=== PATIENT | female | born 1970 ===

== ENCOUNTER 2017-08-01 10:57 | Emergency (ER) | payer BC ==
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
[2017-08-01] MEDS ORDERED: Oxycodone/Acetaminophen 5/325 mg Tab PO STA (12:10)
[2017-08-01] MEDS ORDERED: Oxycodone/Acetaminophen 5/325 mg Tab ONE (12:20)
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
[2017-08-01 14:51] VITALS: BP 132/81; PULSE 77; RESP 16; TEMP 98; O2SAT 98
== END 2017-08-01 14:20 | disposition home or self-care (01) ==
LOC: H.ER 10:57
DX: S20.219A Contusion of unspecified front wall of thorax, initial encounter (principal); Y04.0XXA Assault by unarmed brawl or fight, initial encounter; Y92.89 Other specified places as the place of occurrence of the external cause; F41.9 Anxiety disorder, unspecified

== ENCOUNTER 2017-08-02 11:12 | Inpatient (IN) | payer BC ==
--- NOTE | 2017-08-02 12:12 | ED PDOC ---
HPI: Psych/Substance Abuse Time Seen by Provider: 08/02/17 12:11 Chief Complaint (Nursing): Psychiatric Evaluation Chief Complaint (Provider): psych eval History Per: Patient (47 y/o female here for evaluation of depression/si. States she had composed plan for intake of her buspar medications today. Denies any alcohol intake.) Past Medical History Reviewed: Historical Data, Nursing Documentation, Vital Signs Vital Signs: Last Vital Signs Temp 98.5 F 08/02/17 11:16 Pulse 82 08/02/17 11:16 Resp 20 08/02/17 11:16 BP 123/57 L 08/02/17 11:16 Pulse Ox 100 08/02/17 11:16 - Medical History PMH: Bipolar Disorder - Family History Family History: States: Unknown Family Hx - Home Medications Home Medications: Ambulatory Orders Medication Instructions Recorded oxyCODONE/Acetaminophen [Percocet 1 ea PO Q6H PRN #5 tab 08/01/17 5/325 mg Tab] ALPRAZolam [Xanax] 1 mg PO Q8 PRN 08/02/17 Topiramate [Topamax] 25 mg PO HS 08/02/17 busPIRone [Buspar] 10 mg PO Q12 08/02/17 hydrOXYzine Pamoate [Vistaril] 50 mg PO Q6 PRN 08/02/17 - Allergies Allergies/Adverse Reactions: Allergies Allergy/AdvReac Type Severity Reaction Status Date / Time nut - unspecified Allergy RASH Verified 08/02/17 11:24 shellfish derived Allergy ANAPHYLAXIS Verified 08/02/17 11:24 Review of Systems ROS Statement: Except As Marked, All Systems Reviewed And Found Negative Physical Exam - Reviewed Nursing Documentation Reviewed: Yes Vital Signs Reviewed: Yes - Physical Exam Appears: Positive for: Well, Non-toxic, No Acute Distress Head Exam: Positive for: ATRAUMATIC, NORMAL INSPECTION, NORMOCEPHALIC Skin: Positive for: Normal Color, Warm, DRY Eye Exam: Positive for: EOMI, Normal appearance, PERRL ENT: Positive for: Normal ENT Inspection Neck: Positive for: Normal, Painless ROM Cardiovascular/Chest: Positive for: Regular Rate, Rhythm Respiratory: Positive for: CNT, Normal Breath Sounds Gastrointestinal/Abdominal: Positive for: Normal Exam, Soft Back: Positive for: Normal Inspection Extremity: Positive for: Normal ROM Neurologic/Psych: Positive for: Alert, Oriented - Laboratory Results Result Diagrams: 08/02/17 12:40 08/02/17 12:40 - ECG O2 Sat by Pulse Oximetry: 100 - Progress ED Course And Treament: d/w crisis admitted to [facility] Diagnosis depression/anxiety Disposition - Clinical Impression Clinical Impression: Depression, Anxiety - Patient ED Disposition Is Patient to be Admitted: Yes - Disposition Disposition Time: 13:59 Condition: FAIR - Pt Status Changed To: Hospital Disposition Of: Inpatient - Admit Certification Admit to Inpatient:: After my assessment, the patient will require hospitalization for at least two midnights. This is because of the severity of symptoms shown, intensity of services needed, and/or the medical risk in this patient being treated as an outpatient.
[2017-08-02 12:44] LABS: BASO # 0.1 K/uL (0.0-0.2); BASO % 1.9 % (0.0-2.0); EOS # 0.5 K/uL (0.0-0.7); EOS % 6.8 % (0.0-4.0); HEMOGLOBIN 12.1 g/dL (12.0-16.0); LYMPH # 1.6 K/uL (1.0-4.3); LYMPH % 22.8 % (20.0-40.0); MEAN CELL VOLUME 88.3 fl (81.0-99.0); MEAN CORPUSCULAR HEMOGLOBIN 29.4 pg (27.0-31.0); MEAN CORPUSCULAR HGB CONC 33.3 g/dL (33.0-37.0); MEAN PLATELET VOLUME 6.8 fl (7.2-11.7); MONO # 0.5 K/uL (0.0-0.8); MONO % 7.2 % (0.0-10.0); NEUT # 4.4 K/uL (1.8-7.0); NEUT % 61.3 % (50.0-75.0); RBC 4.11 Mil/uL (3.80-5.20); RED CELL DISTRIBUTION WIDTH 14.9 % (11.5-14.5); WHITE BLOOD COUNT 7.2 K/uL (4.8-10.8)
[2017-08-02 13:02] LABS: ALB/GLOB RATIO 1.2 (1.0-2.1); ALBUMIN 3.8 g/dL (3.5-5.0); ALT/SGPT 31 U/L (9-52); AST/SGOT 20 U/L (14-36); BLOOD UREA NITROGEN 10 mg/dl (7-17); GFR AFRICAN-AMERICAN > 60; GFR NON-AFRICAN AMERICAN > 60
[2017-08-02] MEDS ORDERED: Oxycodone/Acetaminophen 5/325 mg Tab PO STA (14:40)
[2017-08-02 14:45] LABS: SQUAMOUS EPITHIAL 5 /hpf (0-5); URINE BACTERIA FEW (<OCC); URINE BILIRUBIN NEGATIVE (NEGATIVE); URINE BLOOD NEGATIVE (NEGATIVE); URINE CLARITY CLOUDY (Clear); URINE COLOR YELLOW (YELLOW); URINE GLUCOSE (UA) NEG (Normal); URINE LEUKOCYTE ESTERASE MOD Leu/uL (Negative); URINE PROTEIN NEGATIVE (NEGATIVE); URINE UROBILINOGEN 0.2-1.0 mg/dL (0.2-1.0)
[2017-08-02 15:21] LABS: BARBITURATES, UR NEGATIVE (NEGATIVE); OPIATES, UR NEGATIVE (NEGATIVE)
[2017-08-02 15:29] LABS: BENZODIAZEPINES, UR POSITIVE (NEGATIVE); PHENCYCLIDINE, UR NEGATIVE (NEGATIVE)
[2017-08-02 16:39] VITALS: O2SAT 97
[2017-08-02] MEDS ORDERED: Alum-Mag Hydrox-Simethicone Susp (30 mL) PO PRN (17:38)
[2017-08-02] MEDS ORDERED: Bismuth Subsalicylate 262 mg/15 ml Sus (240 ml) PO PRN (17:38)
[2017-08-02] MEDS ORDERED: Magnesium Hydroxide Susp 30 ml UD PO PRN (17:38)
[2017-08-02 18:23] LABS: HDL CHOLESTEROL 42 MG/DL (30-70)
--- NOTE | 2017-08-02 18:26 | PCM.BM ---
<Alva Song - Last Filed: 08/02/17 18:28> Treatment Plan Problems - Problems identified on initial assessmt Problem 1 Date Initiated: 08/02/17 Time Initiated: 18:25 Assessment reference: NA Status: Active Priority: 1 Helplessness/hopeless Date Initiated: 08/02/17 Time Initiated: 18:27 Assessment reference: NA Status: Active Priority: 1 Treatment assets and liabiliti Patient Assests: cooperative, educated, motivated, ADL independent, good support system, negotiates basic needs, cognitively intact Patient Liabilities: financial problems, relationship conflicts, substance abuse - Milieu Protocol Maintain good personal hygiene: every shift Encourage regular showers, every shift Remind patient to perform daily oral care, every shift Assist patient to perform ADL's Maintain personal safety: every shift Educate patient to report safety concerns to staff, every shift Monitor environment for contraband/sharps Medication safety: Monitor for expected outcome, potential side effects: every shift, Assess barriers to learning: every shift, Assess readiness for medication education: every shift <Latosha Sim - Last Filed: 08/03/17 11:57> - Diagnosis (1) Bipolar II disorder Status: Acute Interventions: Medication management, Individual and group therapy, Psychoeducation 08/03/17 11:57 (2) Generalized anxiety disorder Status: Acute Interventions: Medication management, Individual and group therapy, Psychoeducation 08/03/17 11:57 (3) Cocaine use disorder Status: Acute Interventions: Motivational interviewing, Individual and group therapy, Psychoeducation 08/03/17 11:57 <Ambika Mead - Last Filed: 08/03/17 14:37> Family Contact Family contact: Patient agrees to contact, Family has been contacted by patient , Telephone contact initiated by staff Family contact name: Ivis - son Family contacted how many times per week?: 2 Family contact comment: [phone] - Outside Agency [facility] Program Care involvment: Information-sharing Agency contact name: Luis Carlos Agency contact number: [phone] - Goals for Treatment Patient goals for treatment: Pt to be encouraged to attend activity and clinical groups 3-5x per week to identify at least 2 contributing factors to depression and suicide attempt. Psycho-education to be provided to patient/ family regarding benefits of medications and treatment adherence. Pt to be encouraged to participate in group milieu to develop effective coping skills to reduce depression and free of suicide ideation. Coordinate discharge resource needs by providing referral for psychiatric treatment follow up in the community. Discharge/Continuing Care - Education Needs Education Needs: Family Medication, Family Diagnosis/Disease Process, Family Coping Skills, Family Community resources, Family Activities of Daily Living, Family Personal Hygiene/Grooming, Family Aftercare Safety Plan, Patient Medication, Patient Diagnosis/Disease Process, Patient Coping Skills, Patient Community resources, Patient Activities of Daily Living, Patient Personal Hygiene/Grooming, Patient Aftercare Safety Plan - Discharge Discharge Criteria: Tolerates medication w/o severe side effects, Normal sleep pattern, Ability to care for self, Reduction of target symptoms, Other (Free of depressive symptoms) Discharge to:: Home, With Family - Additional Comments 08/03/17 14:30 Pt seen and discussed in team meeting. Reason for admission reviewed. Pt reported being referred to the hospital because "I woke up and wasn't in my right state of mind." Pt reported feeling depressed and anxious. Pt reported hx of anxiety resulting in pt going on temporary disability. Pt reported tx with a previous psychiatrist by the name of Dr. Karen MD located on [place]; but cannot recall the exact address or clinic he worked out of. Pt reported that she was dx with Bipolar D/O by Dr. Karen MD. At time of assessment, pt denied active SI and HI. Pt denied AVH. Pt denied any paranoia. Pt reported feeling "better" since admission. Pt's social and medical issues reviewed. Pt's medications reviewed. Please refer to MD progress note for additional medication information. Pt provided insurance underwriter with written and verbal autho to call her son, Stephen ([phone]) for collateral information. Pt also provided insurance underwriter with verbal autho to contact Luis Carlos ROSENBERG at [facility] ) for additional information. Tx plan reviewed with pt and pt verbalized understanding of same. SW to continue to follow case. - Treatment Team Participation Discussed with Family/SO: No Was Patient/Family/SO present at Treatment Team Meeting: Yes
[2017-08-02 18:33] LABS: LDL CHOLESTEROL 81 mg/dL (0-129)
[2017-08-03 06:50] LABS: MEAN CELL VOLUME 87.8 fl (81.0-99.0); MEAN CORPUSCULAR HEMOGLOBIN 29.5 pg (27.0-31.0); MEAN CORPUSCULAR HGB CONC 33.6 g/dL (33.0-37.0); RBC 4.08 Mil/uL (3.80-5.20); RED CELL DISTRIBUTION WIDTH 14.9 % (11.5-14.5); WHITE BLOOD COUNT 6.8 K/uL (4.8-10.8)
[2017-08-03 07:23] LABS: LDL CHOLESTEROL 80 mg/dL (0-129)
[2017-08-03 07:32] LABS: T4 7.93 ug/dl (5.5-11.0)
[2017-08-03 07:49] LABS: ALB/GLOB RATIO 1.1 (1.0-2.1); ALBUMIN 3.5 g/dL (3.5-5.0); ALT/SGPT 24 U/L (9-52); AST/SGOT 24 U/L (14-36); BLOOD UREA NITROGEN 14 mg/dl (7-17); CALCIUM 8.8 mg/dL (8.4-10.2); FERRITIN 70.8 ng/Ml (6.24-137.0); GFR AFRICAN-AMERICAN > 60; GFR NON-AFRICAN AMERICAN > 60; HDL CHOLESTEROL 38 MG/DL (30-70)
[2017-08-03 08:49] LABS: SQUAMOUS EPITHIAL 7 /hpf (0-5); URINE BACTERIA RARE (<OCC); URINE BILIRUBIN NEGATIVE (NEGATIVE); URINE BLOOD NEGATIVE (NEGATIVE); URINE CLARITY SLIGHTY-CLOUDY (Clear); URINE COLOR YELLOW (YELLOW); URINE GLUCOSE (UA) NEG (Normal); URINE LEUKOCYTE ESTERASE LARGE Leu/uL (Negative); URINE PROTEIN NEGATIVE (NEGATIVE); URINE UROBILINOGEN 0.2-1.0 mg/dL (0.2-1.0)
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
[2017-08-03] MEDS ORDERED: Oxycodone/Acetaminophen 5/325 mg Tab PO PRN (12:03)
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
[2017-08-03 13:15] LABS: FOLATE 9.9 ng/mL
[2017-08-03] MEDS ORDERED: Pneumococcal 23-Valent Vaccine IM ONE (17:24)
[2017-08-04 05:38] VITALS: BP 102/61; PULSE 66; RESP 19; TEMP 97
[2017-08-04 06:53] LABS: BASO # 0.1 K/uL (0.0-0.2); BASO % 1.3 % (0.0-2.0); EOS # 0.5 K/uL (0.0-0.7); EOS % 5.9 % (0.0-4.0); HEMOGLOBIN 12.4 g/dL (12.0-16.0); LYMPH # 1.7 K/uL (1.0-4.3); LYMPH % 21.8 % (20.0-40.0); MEAN CELL VOLUME 88.2 fl (81.0-99.0); MEAN CORPUSCULAR HEMOGLOBIN 28.8 pg (27.0-31.0); MEAN CORPUSCULAR HGB CONC 32.6 g/dL (33.0-37.0); MEAN PLATELET VOLUME 6.9 fl (7.2-11.7); MONO # 0.6 K/uL (0.0-0.8); MONO % 8.1 % (0.0-10.0); NEUT % 62.9 % (50.0-75.0); RBC 4.32 Mil/uL (3.80-5.20); RED CELL DISTRIBUTION WIDTH 14.8 % (11.5-14.5)
--- NOTE | 2017-08-04 09:39 | PCM.PYCHPN ---
Psychiatric Progress Note - Psychiatric Progress Note Patient Chief Complaint: "I'm depressed and anxious." Mental Status Examination - Cognitive Function Orientation: Person, Place, Situation, Time - Mood Mood: Depressed, Anxious - Affect Affect: Constricted, Depressed - Formal Thought Process Formal Thought Process: No Impairment - Homicidal Ideation Homicidal Ideation: No Goal/Treatment Plan - Goal/Treatment Plan Progress Toward Problem(s) and Goals/Treatment Plan: Bipolar II Disorder, r/o Substance Induced Mood Disorder, r/o Borderline Personality Disorder; Generalized Anxiety Disorder; Cocaine Use Disorder -Admit to psychiatry unit -Stop Topamax, start Lamictal 25 mg PO Daily -Continue Buspar 10 mg PO BID -Stop Xanax; psychoeducation provided on the dangers of fpc benzodiazepine use/abuse; PRN Ativan if needed for withdrawal symptoms -Medicine consult -Individual and group therapy -Psychoeducation re: substance abuse -Disposition planning -Patient declined nicotine replacement
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
--- NOTE | 2017-08-04 15:30 | CP.PCM.PN ---
Subjective - Date & Time of Evaluation Date of Evaluation: 08/04/17 Objective - Vital Signs/Intake and Output Vital Signs (last 24 hours): Temp Pulse Resp BP Pulse Ox 97 F L 66 19 102/61 97 08/04/17 05:37 08/04/17 05:37 08/04/17 05:37 08/04/17 05:37 08/02/17 16:20 - Labs Labs: 08/04/17 06:35 08/03/17 06:20
== END 2017-08-04 13:24 | disposition home or self-care (01) | DRG 885 ==
LOC: H.ER 11:12 → H.PSYCH 13:59 → H.ERHOLD 14:32 → H.STEP 17:22
PROVIDERS: ADMIT Psychiatry & Neurology Psychiatry; ATTEND Psychiatry & Neurology Psychiatry
PROC: HZ56ZZZ Individual Psychotherapy for Substance Abuse Treatment, Psychoeducation (ICD-10-PCS; principal; 2017-08-02)
PROC: 3E0234Z Introduction of Serum, Toxoid and Vaccine into Muscle, Percutaneous Approach (ICD-10-PCS; 2017-08-03)
DX: F31.81 Bipolar II disorder (principal); N39.0 Urinary tract infection, site not specified; F41.1 Generalized anxiety disorder; F14.90 Cocaine use, unspecified, uncomplicated; Z91.013 Allergy to seafood; Z91.018 Allergy to other foods; Z23 Encounter for immunization; F17.210 Nicotine dependence, cigarettes, uncomplicated

== ENCOUNTER 2018-04-24 13:18 | Emergency (ER) | payer BC, OTHER ==
[2018-04-24 13:25] VITALS: BP 102/65; PULSE 57; RESP 18; TEMP 97.6; O2SAT 100
--- NOTE | 2018-04-24 16:24 | ED PDOC ---
HPI: Back Time Seen by Provider: 04/24/18 13:35 Chief Complaint (Nursing): Back Pain Chief Complaint (Provider): Back Pain History Per: Patient History/Exam Limitations: no limitations Onset/Duration Of Symptoms: Days Current Symptoms Are (Timing): Still Present Additional Complaint(s): 48 y/o female with a PMHx of Bipolar Disorder and herniated disks presents to the ED for evaluation of back pain with radiation down the back of the right leg as well as bilateral ear clogging. Patient states she started feeling like her left ear was clogged about a month ago and has now progressed to the right ear. Patient notes she has not taken any medications for pain nor seen any specialists. Patient states that the main reason she is here today is for evaluation of back pain that began one week ago. Patient reports pain as now progressed by going down the right leg. Patient notes of taking 800 mg of Ibuprofen and intermittent flexeril without much improvement of pain. Otherwise, patient denies numbness and tingling in the feet, trauma, falls, fever, chills, dizziness and sore throat. PMD:Jagdeep Rodas Past Medical History Reviewed: Historical Data, Nursing Documentation, Vital Signs Vital Signs: Last Vital Signs Temp 97.6 F 04/24/18 13:24 Pulse 57 L 04/24/18 13:24 Resp 18 04/24/18 13:24 BP 102/65 04/24/18 13:24 Pulse Ox 100 04/24/18 13:24 - Medical History PMH: Anxiety, Bipolar Disorder, Depression Denies: Diabetes, Hepatitis, HIV, HTN, Chronic Kidney Disease, Seizures, Sexually Transmitted Disease Other PMH: herniated disks - Surgical History Surgical History: No Surg Hx - Family History Family History: States: Unknown Family Hx - Home Medications Home Medications: Ambulatory Orders Medication Instructions Recorded Nitrofurantoin Macrocrystals 100 mg PO Q12 #11 cap 08/04/17 [Macrobid] busPIRone [Buspar] 10 mg PO BID #28 tab 08/04/17 lamoTRIgine [Lamictal] 25 mg PO DAILY #14 tab 08/04/17 Cyclobenzaprine [Cyclobenzaprine 10 mg PO Q8 PRN 5 Days tab 04/24/18 HCl] Diclofenac Sodium 50 mg PO TID PRN 7 Days tablet. 04/24/18 Fluticasone Nasal [Flonase] 1 spr NS BID PRN #1 bottle 04/24/18 Methylprednisolone [Medrol Dose 4 mg PO DAILY #21 mg 04/24/18 Pack (21 tabs)] - Allergies Allergies/Adverse Reactions: Allergies Allergy/AdvReac Type Severity Reaction Status Date / Time nut - unspecified Allergy RASH Verified 08/02/17 11:24 shellfish derived Allergy ANAPHYLAXIS Verified 08/02/17 11:24 Review of Systems ROS Statement: Except As Marked, All Systems Reviewed And Found Negative Constitutional: Negative for: Fever, Chills ENT: Positive for: Ear Pain. Negative for: Throat Pain Musculoskeletal: Positive for: Back Pain, Leg Pain Neurological: Negative for: Numbness, Dizziness Physical Exam - Reviewed Nursing Documentation Reviewed: Yes Vital Signs Reviewed: Yes - Physical Exam Appears: Positive for: Well ENT: Positive for: Pharynx Is (clear), TM Is/Are (TMs normal bilaterally), Sinus Pain/Drainage (Tenderness to palpation on the frontal sinuses), Nasal Congestion, Other (swollen nasal turbinates (right>left)) Pulses-Dorsalis Pedis (L): 2+ Pulses-Dorsalis Pedis (R): 2+ Back: Positive for: Decreased ROM (with flexion of the back), Other (Tenderness to palpation of the lumbar spine and the right buttock to the right leg. No erythema, deformity and ecchymosis. ) Extremity: Positive for: Normal ROM (Normal ROM with flexion and extension of the right knee and ankle. Pain with flexion of the right hip), Capillary Refill (> 2 seconds) - ECG O2 Sat by Pulse Oximetry: 100 (RA) Pulse Ox Interpretation: Normal Medical Decision Making Medical Decision Making: Time: 1541 Impression: -- Flexeril 10 mg PO -- Flonase 1 spr LAN -- Toradol 30 mg IM -- Patient advised that her ear clogging may be secondary to nasal congestion. Patient instructed that if symptoms do not improve with the use of Flonase, she will be given a referral to followup with an ENT specialist. Scribe Attestation: Documented by Alina Stevenson, acting as a scribe Danish Greco PA-C. Provider Scribe Attestation: All medical record entries made by the Scribe were at my direction and personally dictated by me. I have reviewed the chart and agree that the record accurately reflects my personal performance of the history, physical exam, medical decision making, and the department course for this patient. I have also personally directed, reviewed, and agree with the discharge instructions and disposition. Disposition - Clinical Impression Clinical Impression: Sciatica, Nasal congestion - Patient ED Disposition Is Patient to be Admitted: No - Disposition Referrals: Adan Li MD [Staff Provider] - Disposition: Routine/Home Disposition Time: 16:41 Condition: STABLE Additional Instructions: Take Diclofenac and Flexeril as needed for pain. Avoid driving or operating heavy machinery while taking Flexeril. Use Flonase for nasal congestion. Follow up with budget director (Ear, nose, throat specialist) if ear symptoms continue. Follow up with your primary care doctor for further evaluation of sciatica. Prescriptions: Cyclobenzaprine [Cyclobenzaprine HCl] 10 mg PO Q8 PRN 5 Days tab PRN Reason: Pain, Moderate (4-7) Diclofenac Sodium 50 mg PO TID PRN 7 Days tablet.dr PRN Reason: Pain, Moderate (4-7) Fluticasone Nasal [Flonase] 1 spr NS BID PRN #1 bottle PRN Reason: Nasal Congestion Methylprednisolone [Medrol Dose Pack (21 tabs)] 4 mg PO DAILY #21 mg Instructions: Sciatica (DC) Forms: [employer] (Irish) Print Language: MALAYSIAN
== END 2018-04-24 16:49 | disposition home or self-care (01) ==
LOC: H.ER 13:18
DX: M54.31 Sciatica, right side (principal); R09.81 Nasal congestion; F31.9 Bipolar disorder, unspecified
CPT/HCPCS: 96372; 99284; J1885

== ENCOUNTER 2018-07-11 14:21 | Emergency (ER) | payer BC, OTHER ==
[2018-07-11 14:43] VITALS: BP 123/78; PULSE 75; RESP 15; TEMP 99; O2SAT 99
--- NOTE | 2018-07-11 15:34 | ED PDOC ---
HPI: Back Time Seen by Provider: 07/11/18 14:47 Chief Complaint (Nursing): Lower Extremity Problem/Injury Chief Complaint (Provider): Back Pain History Per: Patient History/Exam Limitations: no limitations Onset/Duration Of Symptoms: Days (chronic), Worse Since (x1 week) Current Symptoms Are (Timing): Still Present Additional Complaint(s): 48 year old female with pmhx bipolar disorder, depression, and sciatica presents to the ED for evaluation recurrent sciatica pain. Patient reports that one month ago she received an injection for her chronic pain by her pain management doctor, but one week ago it wore off and has had worsening pain since that begins in her bilateral lower back and radiates down her buttocks into her bilateral legs. Otherwise, denies weakness, urinary / fecal incontinence, and numbness / tingling in extremities. Of note, she last took four tabs of 800mg each Ibuprofen last night around 1800 with minimal relief. Past Medical History Reviewed: Historical Data, Nursing Documentation, Vital Signs Vital Signs: Last Vital Signs Temp 99.0 F 07/11/18 14:42 Pulse 75 07/11/18 14:42 Resp 15 07/11/18 14:42 BP 123/78 07/11/18 14:42 Pulse Ox 99 07/11/18 14:42 Primary Care Provider: Jagdeep Rodas - Medical History PMH: Anxiety, Back Problems, Bipolar Disorder, Depression, Chronic Pain (sciatica) Denies: Diabetes, Hepatitis, HIV, HTN, Chronic Kidney Disease, Seizures, Sexually Transmitted Disease - Surgical History Surgical History: No Surg Hx - Family History Family History: States: Unknown Family Hx - Social History Current smoker - smoking cessation education provided: Yes - Home Medications Home Medications: Ambulatory Orders Medication Instructions Recorded Nitrofurantoin Macrocrystals 100 mg PO Q12 #11 cap 08/04/17 [Macrobid] busPIRone [Buspar] 10 mg PO BID #28 tab 08/04/17 lamoTRIgine [Lamictal] 25 mg PO DAILY #14 tab 08/04/17 Cyclobenzaprine [Cyclobenzaprine 10 mg PO Q8 PRN 5 Days tab 04/24/18 HCl] Diclofenac Sodium 50 mg PO TID PRN 7 Days tablet. 04/24/18 Fluticasone Nasal [Flonase] 1 spr NS BID PRN #1 bottle 04/24/18 Methylprednisolone [Medrol Dose 4 mg PO DAILY #21 mg 04/24/18 Pack (21 tabs)] Cyclobenzaprine [Flexeril] 10 mg PO Q8 PRN 5 Days tab 07/11/18 Naproxen 500 mg PO BID PRN 7 Days tab 07/11/18 - Allergies Allergies/Adverse Reactions: Allergies Allergy/AdvReac Type Severity Reaction Status Date / Time nut - unspecified Allergy RASH Verified 07/11/18 14:43 shellfish derived Allergy ANAPHYLAXIS Verified 07/11/18 14:43 Review of Systems ROS Statement: Except As Marked, All Systems Reviewed And Found Negative Constitutional: Negative for: Weakness Genitourinary Female: Negative for: Incontinence Musculoskeletal: Positive for: Back Pain (bilateral lower radiating down buttock into bilateral legs) Neurological: Negative for: Numbness (or tingling) Physical Exam - Reviewed Nursing Documentation Reviewed: Yes Vital Signs Reviewed: Yes - Physical Exam Appears: Positive for: Uncomfortable Cardiovascular/Chest: Positive for: Regular Rate, Rhythm Respiratory: Positive for: Normal Breath Sounds. Negative for: Respiratory Distress Pulses-Dorsalis Pedis (L): 2+ Pulses-Dorsalis Pedis (R): 2+ Back: Positive for: Normal Inspection (no ecchymosis, no erythema, no deformity), Decreased ROM (with flexion of back, but normal extension), Other (bilateral paravertebral tenderness to lower back). Negative for: Vertebral Tenderness Extremity: Positive for: Tenderness (tenderness to palpation of bilateral buttock with radiation of pain to anterior thigh and knee bilaterally), Capillary Refill (less than 2 seconds) Neurological/Psych: Positive for: Awake, Alert, Oriented (x3) - ECG O2 Sat by Pulse Oximetry: 99 (RA) Pulse Ox Interpretation: Normal Medical Decision Making Medical Decision Making: Time: 1500 Initial Impression: chronic back pain, sciatica Initial Plan: --Flexeril 10mg PO (pt not driving home) --Toradol 30mg IM --Reevaluate 1605 Patient reports improvement in pain, stating it is now a 3/10 and was a 10/10 when she arrived. Advised to follow up with her china painter as soon as possible for follow up as they will be able to provide her with assisted relief. All questions answered and return parameters discussed. Patient verbalized understanding and agreement of plan. Stable for discharge. Scribe Attestation: Documented by Kiara Eddy, acting as a scribe for Georgette Greco PA-C. Provider Scribe Attestation: All medical record entries made by the Scribe were at my direction and personal ly dictated by me. I have reviewed the chart and agree that the record accurately reflects my personal performance of the history, physical exam, medical decision making, and the department course for this patient. I have also personally directed, reviewed, and agree with the discharge instructions and disposition. Disposition - Clinical Impression Clinical Impression: Sciatica - Patient ED Disposition Is Patient to be Admitted: No Counseled Patient/Family Regarding: Diagnosis, Need For Followup, Rx Given - Disposition Referrals: Marcos Khan MD [Staff Provider] - Disposition: Routine/Home Disposition Time: 16:00 Condition: STABLE Additional Instructions: Follow up with Dr. Khan for further evaluation of recurrent sciatica pain as you may need an injection again. Return to ER if your symptoms worsen and are not treated by the pain medications. Take Naproxen or Cyclobenzaprine for the pain. Avoid taking Cyclobenzaprine (Flexeril) if you will be driving or operating heavy machinery as it can make you drowsy. Prescriptions: Cyclobenzaprine [Flexeril] 10 mg PO Q8 PRN 5 Days tab PRN Reason: Muscle Spasm Naproxen 500 mg PO BID PRN 7 Days tab PRN Reason: Pain, Moderate (4-7) Forms: [employer] (Mohawk) Print Language: SLOVENIAN
== END 2018-07-11 16:06 | disposition home or self-care (01) ==
LOC: H.ER 14:21
DX: G89.29 Other chronic pain (principal); M54.30 Sciatica, unspecified side; F17.200 Nicotine dependence, unspecified, uncomplicated; Z86.59 Personal history of other mental and behavioral disorders
CPT/HCPCS: 81025; 96372; 99284; J1885